=== PATIENT | female | born 1955 | race Caucasian/White ===

== ENCOUNTER 2018-11-25 16:33 | Inpatient (IN) ==
[2018-11-25 17:32] LABS: Basophils # 0.1 10*3/uL (0.0-0.2); Basophils % 0.7 % (0.0-0.8); Eosinophils # 0.1 10*3/uL (0.0-0.87); Eosinophils % 0.7 % (0.00-10.9); Hematocrit 39.5 VOL% (35.7-47.0); Hemoglobin 12.5 GM/DL (12.0-16.0); Immature Granulocytes % 0.7 %; Immature Granulocytes Absolute 0.11 #; Lymphocytes # 1.1 10*3/uL (1.4-4.0); Lymphocytes % 6.3 % (21.3-54.2); Mean Corpuscular HGB Conc 31.6 GM/DL (32-36); Mean Corpuscular Hemoglobin 28 PG (27-34); Mean Corpuscular Volume 89.6 FL (87-102); Mean Platelet Volume 10.2 FL (9.6-12.0); Monocytes # 0.8 10*3/uL (0.11-0.8); Monocytes % 4.9 % (1.7-12.7); Neutrophils # 14.6 10*3/uL (1.4-7.4); Neutrophils % 86.7 % (38.7-73.9); Platelet Count 373 T/CUMM (130-400); Red Blood Count 4.41 MC/CUMM (3.8-5.5); Red Cell Distribution Width 14.7 % (9.3-17.3); White Blood Count 16.9 T/CUMM (4-12)
[2018-11-25 17:39] LABS: Apearance,Urine CLEAR (Clear); Bacteria,Urine Occasional /HPF (Few); Bilirubin,Urine Negative (Negative); Blood, Urine Negative (Negative); Glucose,Urine (UA) Negative (Negative); Ketones,Urine Negative (Negative); Mucus,Urine Occasional /LPF (Occasional); Nitrite,Urine Negative (Negative); Protein,Urine Negative; RBC,Urine 2 /HPF (0-4); Urine Color Straw (Yellow); Urine Specific Gravity 1.006 (1.001-1.035); Urine Urobilinogen < 2.0 EU/DL (0.2-1.0); WBC,Urine 1 /HPF (0-6)
[2018-11-25 17:51] LABS: Alanine Aminotransferase 46 U/L (13-56); Albumin 4.1 G/DL (3.4-5.0); Alkaline Phosphatase 190 U/L (45-117); Aspartate Amino Transferase 22 U/L (0-37); Bilirubin,Total < 0.39 MG/DL (0.2-1.0); Blood Urea Nitrogen 18 MG/DL (7-18); Calcium 9.2 MG/DL (8.5-10.1); Glucose 93 MG/DL (74-106); Osmolality,Calculated 267.4 MOS/KG (273-304); Potassium 3.6 MMOL/L (3.5-5.1); Sodium 133 MMOL/L (136-145); Total Protein 8.6 G/DL (6.4-8.3)
[2018-11-25] MEDS ORDERED: ONDANSETRON 4 MG/2 ML VIAL IV PRN (19:00)
[2018-11-25] MEDS ORDERED: ALBUTEROL/IPRATROPIUM 3 ML NEB RESP TX STA (19:00)
[2018-11-25] MEDS ORDERED: BISACODYL 5 MG TABLET PO PRN (19:00)
[2018-11-25] MEDS ORDERED: ZALEPLON 5 MG CAPSULE PO PRN (19:00)
[2018-11-25] MEDS ORDERED: NICOTINE 21 MG/24 HR PATCH TRANSDERM PRN (19:00)
[2018-11-25] MEDS ORDERED: ACETAMINOPHEN 325 MG TABLET PO PRN (19:00)
[2018-11-25] MEDS ORDERED: LACTULOSE 20 GM/30 ML UDCUP PO PRN (19:00)
[2018-11-25] MEDS: MORPHINE 4 MG/1 ML VIAL IV PRN (19:41)
[2018-11-25] MEDS: SODIUM CHLORIDE 0.9% 1,000 ML IV SCH (19:44)
[2018-11-25 19:47] LABS: Thyroid Stimulating Hormone 1.91 uIU/ml (0.358-3.74)
[2018-11-25] MEDS: ALBUTEROL/IPRATROPIUM 3 ML NEB RESP TX SCH (23:02)
[2018-11-26] MEDS: MORPHINE 4 MG/1 ML VIAL IV PRN ×5 (00:06→20:40)
[2018-11-26] MEDS: SODIUM CHLORIDE 0.9% 1,000 ML IV SCH ×5 (03:09→20:02)
[2018-11-26 05:18] LABS: Basophils # 0.1 10*3/uL (0.0-0.2); Basophils % 1.2 % (0.0-0.8); Eosinophils # 0.2 10*3/uL (0.0-0.87); Eosinophils % 2.4 % (0.00-10.9); Hematocrit 34.6 VOL% (35.7-47.0); Hemoglobin 10.6 GM/DL (12.0-16.0); Immature Granulocytes % 0.3 %; Immature Granulocytes Absolute 0.03 #; Lymphocytes % 10.7 % (21.3-54.2); Mean Corpuscular HGB Conc 30.6 GM/DL (32-36); Mean Corpuscular Hemoglobin 28 PG (27-34); Mean Corpuscular Volume 91.3 FL (87-102); Monocytes # 0.8 10*3/uL (0.11-0.8); Monocytes % 9.4 % (1.7-12.7); Neutrophils # 6.8 10*3/uL (1.4-7.4); Platelet Count 239 T/CUMM (130-400); Red Blood Count 3.79 MC/CUMM (3.8-5.5); Red Cell Distribution Width 14.7 % (9.3-17.3)
[2018-11-26 05:41] LABS: Calcium 8.3 MG/DL (8.5-10.1); Osmolality,Calculated 272.8 MOS/KG (273-304); Potassium 3.8 MMOL/L (3.5-5.1)
[2018-11-26] MEDS ORDERED: PROPOFOL 500 MG/50 ML BOTTLE IV ONE (06:48)
[2018-11-26] MEDS ORDERED: BUPIVACAINE SPINAL 0.75% 2 ML AMP SPINAL ONE (06:48)
[2018-11-26] MEDS ORDERED: PHENYLEPHRINE DRIP 20 MG/250 ML PREMIX IV ONE (06:49)
[2018-11-26] MEDS: LEVOTHYROXINE 88 MCG TABLET PO SCH (07:15)
[2018-11-26] MEDS: ALBUTEROL/IPRATROPIUM 3 ML NEB RESP TX SCH ×2 (07:41→14:52)
[2018-11-26] MEDS ORDERED: ceFAZolin 1,000 MG VIAL ONE (07:49)
[2018-11-26] MEDS ORDERED: BUPIVACAINE 0.5% 50 ML VIAL ONE (08:13)
[2018-11-26] MEDS ORDERED: ceFAZolin 1,000 MG in SYRINGE 1 EACH IV ONE (08:14)
[2018-11-26] MEDS ORDERED: EPINEPHrine 1 MG/ML VIAL ONE (08:38)
[2018-11-26] MEDS ORDERED: MIDAZOLAM 2 MG/2 ML VIAL ONE (08:53)
[2018-11-26] MEDS ORDERED: KETAMINE 500 MG/10 ML VIAL ONE (08:54)
[2018-11-26] MEDS ORDERED: KETOROLAC 30 MG/1 ML VIAL IV ONE (10:55)
[2018-11-26] MEDS: CITALOPRAM 40 MG TABLET PO SCH (11:06)
[2018-11-26] MEDS: PANTOPRAZOLE 40 MG TABLET PO SCH (11:07)
[2018-11-27] MEDS: ALBUTEROL/IPRATROPIUM 3 ML NEB RESP TX SCH ×2 (00:13→07:42)
[2018-11-27] MEDS: MORPHINE 4 MG/1 ML VIAL IV PRN ×3 (02:44→11:41)
[2018-11-27] MEDS: SODIUM CHLORIDE 0.9% 1,000 ML IV SCH ×2 (02:44→06:05)
[2018-11-27 04:47] LABS: Basophils # 0.1 10*3/uL (0.0-0.2); Basophils % 0.8 % (0.0-0.8); Eosinophils # 0.4 10*3/uL (0.0-0.87); Eosinophils % 4.3 % (0.00-10.9); Hematocrit 31.3 VOL% (35.7-47.0); Hemoglobin 9.5 GM/DL (12.0-16.0); Immature Granulocytes % 0.4 %; Immature Granulocytes Absolute 0.04 #; Lymphocytes % 10.6 % (21.3-54.2); Mean Corpuscular HGB Conc 30.4 GM/DL (32-36); Mean Corpuscular Hemoglobin 28 PG (27-34); Mean Corpuscular Volume 93.2 FL (87-102); Mean Platelet Volume 10.2 FL (9.6-12.0); Monocytes # 0.9 10*3/uL (0.11-0.8); Monocytes % 9.9 % (1.7-12.7); Platelet Count 221 T/CUMM (130-400); Red Blood Count 3.36 MC/CUMM (3.8-5.5); Red Cell Distribution Width 14.6 % (9.3-17.3); White Blood Count 9.4 T/CUMM (4-12)
[2018-11-27 05:12] LABS: Osmolality,Calculated 273.7 MOS/KG (273-304); Potassium 3.5 MMOL/L (3.5-5.1)
[2018-11-27] MEDS: LEVOTHYROXINE 88 MCG TABLET PO SCH (05:43)
[2018-11-27] MEDS ORDERED: MAGNESIUM SULF RIDER 2 GM in PREMIX 1 EACH IV ONE (07:18)
[2018-11-27] MEDS ORDERED: ENOXAPARIN 40 MG/0.4 ML SYRINGE SUBCUT SCH (08:00)
[2018-11-27] MEDS: CITALOPRAM 40 MG TABLET PO SCH (09:17)
[2018-11-27] MEDS: PANTOPRAZOLE 40 MG TABLET PO SCH (09:37)
[2018-11-27] MEDS ORDERED: KETOROLAC 30 MG/1 ML VIAL IV ONE (10:06)
[2018-11-27 12:02] VITALS: BP 157/64
== END 2018-11-27 15:00 | disposition home health service (06) | DRG 481 ==
LOC: EDBD → EDUNIT# → N.ED 16:33 → N.EDINP 17:12 → SUATTDRO 17:12 → N.3E 18:01
PROVIDERS: ADMIT Internal Medicine; ATTEND Internal Medicine

== ENCOUNTER 2021-03-22 12:17 | Inpatient (IN) ==
[2021-03-22] MEDS ORDERED: SODIUM CHLORIDE 0.9% 1,000 ML IV STA (12:57)
[2021-03-22] MEDS ORDERED: ONDANSETRON 4 MG/2 ML VIAL IV STA (12:57)
[2021-03-22] MEDS ORDERED: HYDROmorphone 2 MG/1 ML VIAL IV STA (12:57)
[2021-03-22] MEDS ORDERED: ALBUTEROL 2.5 MG/3 ML NEB RESP TX STA (13:01)
[2021-03-22 13:27] LABS: Basophils # 0.1 10*3/uL (0.0-0.2); Basophils % 0.6 % (0.0-0.8); Eosinophils % 0.1 % (0.00-10.9); Hematocrit 47.6 VOL% (35.7-47.0); Hemoglobin 15.2 GM/DL (12.0-16.0); Immature Granulocytes % 0.5 %; Immature Granulocytes Absolute 0.07 #; Lymphocytes # 0.6 10*3/uL (1.4-4.0); Lymphocytes % 4.3 % (21.3-54.2); Mean Corpuscular HGB Conc 31.9 GM/DL (32-36); Mean Corpuscular Volume 97.5 FL (87-102); Mean Platelet Volume 9.7 FL (9.6-12.0); Monocytes % 7.2 % (1.7-12.7); Neutrophils % 87.3 % (38.7-73.9); Platelet Count 340 T/CUMM (130-400); Red Blood Count 4.88 MC/CUMM (3.8-5.5); Red Cell Distribution Width 12.6 % (9.3-17.3); White Blood Count 14.5 T/CUMM (4-12)
[2021-03-22 13:43] LABS: Albumin 3.8 G/DL (3.4-5.0); Bilirubin,Total 0.5 MG/DL (0.2-1.0); Calcium 9.6 MG/DL (8.5-10.1); Osmolality,Calculated 258.8 MOS/KG (273-304); Potassium 3.4 MMOL/L (3.5-5.1); Total Protein 8.5 G/DL (6.4-8.2)
[2021-03-22 13:51] LABS: Bacteria,Urine Occasional /HPF (Few); Bilirubin,Urine Negative (Negative); Blood, Urine Negative (Negative); Glucose,Urine (UA) Negative (Negative); Hyaline Casts,Urine 1 /LPF (0-3); Ketones,Urine 20 mg/dL (Negative); Mucus,Urine Occasional /LPF (Occasional); Nitrite,Urine Negative (Negative); Protein,Urine Negative; RBC,Urine 7 /HPF (0-4); Squamous Epithelial Cell,Urine Occasional /HPF (0-10); Urine Appearance CLEAR (Clear); Urine Color Yellow (Yellow); Urine Specific Gravity 1.017 (1.001-1.035)
[2021-03-22 14:17] LABS: Hypochromasia 1+; Lymphocytes 4 % (20-55); Macrocytosis Slight; Platelet Estimate Normal; Segmented Neutrophils 94 % (50-85); Total Cells Counted 100
[2021-03-22] MEDS ORDERED: ACETAMINOPHEN 325 MG TABLET PO PRN (15:36)
[2021-03-22] MEDS ORDERED: DEXTROSE 50% 25 GM/50 ML VIAL IV PRN (15:36)
[2021-03-22] MEDS ORDERED: GLUCAGON 1 MG VIAL IM PRN (15:36)
[2021-03-22 15:52] LABS: ABG Base Excess 8.9 MMOL/L (-2.5-2.5); ABG HCO3 32.6 MMOL/L (20-26); ABG Oxygen Saturation 92.3 % (95-100); ABG PCO2 68.7 MM HG (35-48); ABG PH 7.348 (7.35-7.45); ABG PO2 63.8 MM HG (80-95); ABG TCO2 33.2 MMOL/L (23-27); Allen Test Positive
[2021-03-22] MEDS ORDERED: ALBUTEROL/IPRATROPIUM 3 ML NEB RESP TX PRN (15:55)
[2021-03-22 16:25] LABS: Thyroid Stimulating Hormone 0.759 uIU/ml (0.358-3.74)
[2021-03-22] MEDS: NICOTINE 21 MG/24 HR PATCH TRANSDERM PRN (18:05)
[2021-03-22] MEDS: ENOXAPARIN 40 MG/0.4 ML SYRINGE SUBCUT SCH (18:10)
[2021-03-22] MEDS: SODIUM CHLORIDE 0.9% 1,000 ML IV SCH (18:12)
[2021-03-22] MEDS ORDERED: traZODone 50 MG TABLET PO ONE (22:14)
[2021-03-22] MEDS: HYDROmorphone 2 MG/1 ML VIAL IV PRN (23:06)
[2021-03-23] MEDS: SODIUM CHLORIDE 0.9% 1,000 ML IV SCH (03:34)
[2021-03-23] MEDS: HYDROmorphone 2 MG/1 ML VIAL IV PRN ×5 (07:05→21:23)
[2021-03-23 08:35] LABS: PT Patient Result 11.3 SECS (10.5-12.0)
[2021-03-23 08:39] LABS: Albumin 2.7 G/DL (3.4-5.0); Bilirubin,Total 0.5 MG/DL (0.2-1.0); Calcium 8.8 MG/DL (8.5-10.1); Potassium 3.4 MMOL/L (3.5-5.1); Total Protein 6.3 G/DL (6.4-8.2)
[2021-03-23 08:40] LABS: Basophils # 0.1 10*3/uL (0.0-0.2); Basophils % 0.7 % (0.0-0.8); Eosinophils # 0.1 10*3/uL (0.0-0.87); Eosinophils % 0.7 % (0.00-10.9); Hematocrit 38.8 VOL% (35.7-47.0); Immature Granulocytes % 0.4 %; Immature Granulocytes Absolute 0.03 #; Lymphocytes # 0.7 10*3/uL (1.4-4.0); Lymphocytes % 8.9 % (21.3-54.2); Mean Corpuscular HGB Conc 32.7 GM/DL (32-36); Mean Corpuscular Volume 97.5 FL (87-102); Monocytes % 9.6 % (1.7-12.7); Neutrophils % 79.7 % (38.7-73.9); Red Blood Count 3.98 MC/CUMM (3.8-5.5); Red Cell Distribution Width 12.7 % (9.3-17.3)
[2021-03-23 08:41] LABS: Hemoglobin 12.7 GM/DL (12.0-16.0); White Blood Count 8.1 T/CUMM (4-12)
[2021-03-23 08:42] LABS: Platelet Count 236 T/CUMM (130-400)
[2021-03-23] MEDS: PANTOPRAZOLE 40 MG VIAL IV SCH (10:12)
[2021-03-23] MEDS: ONDANSETRON 4 MG/2 ML VIAL IV PRN ×2 (10:16→18:37)
[2021-03-23] MEDS ORDERED: DIAZEPAM 5 MG TABLET PO ONE (11:09)
[2021-03-23] MEDS ORDERED: POTASSIUM CHLORIDE 20 MEQ TABLET PO ONE (13:30)
[2021-03-23] MEDS: LORazepam 2 MG/1 ML VIAL IV PRN (14:17)
[2021-03-23] MEDS ORDERED: POLYETHYLENE GLYCOL POWDER 255 GM BOTTLE PO ONE (18:00)
[2021-03-23] MEDS: ENOXAPARIN 40 MG/0.4 ML SYRINGE SUBCUT SCH (18:38)
[2021-03-23] MEDS ORDERED: MAGNESIUM CITRATE 300 ML BOTTLE PO ONE (21:00)
[2021-03-23] MEDS ORDERED: ALUMINUM/MAGNES/SIMETH MAX STR 30 ML UDCUP PO PRN (21:36)
[2021-03-23] MEDS: NICOTINE 21 MG/24 HR PATCH TRANSDERM PRN (22:31)
[2021-03-24] MEDS: HYDROmorphone 2 MG/1 ML VIAL IV PRN ×5 (03:11→19:38)
[2021-03-24] MEDS: LEVOTHYROXINE 125 MCG TABLET PO SCH (05:40)
[2021-03-24 06:12] LABS: Basophils # 0.1 10*3/uL (0.0-0.2); Basophils % 0.8 % (0.0-0.8); Eosinophils # 0.1 10*3/uL (0.0-0.87); Eosinophils % 0.8 % (0.00-10.9); Hematocrit 42.6 VOL% (35.7-47.0); Hemoglobin 13.1 GM/DL (12.0-16.0); Immature Granulocytes % 0.4 %; Immature Granulocytes Absolute 0.05 #; Lymphocytes # 0.9 10*3/uL (1.4-4.0); Lymphocytes % 6.7 % (21.3-54.2); Mean Corpuscular HGB Conc 30.8 GM/DL (32-36); Mean Corpuscular Volume 100.9 FL (87-102); Mean Platelet Volume 10.3 FL (9.6-12.0); Monocytes % 8.2 % (1.7-12.7); Neutrophils % 83.1 % (38.7-73.9); Platelet Count 310 T/CUMM (130-400); Red Blood Count 4.22 MC/CUMM (3.8-5.5); Red Cell Distribution Width 12.5 % (9.3-17.3)
[2021-03-24] MEDS ORDERED: LACTATED RINGERS 1,000 ML IV SCH (06:30)
[2021-03-24 06:41] LABS: Albumin 2.9 G/DL (3.4-5.0); Bilirubin,Total 1.1 MG/DL (0.2-1.0); Calcium 8.9 MG/DL (8.5-10.1); Potassium 3.5 MMOL/L (3.5-5.1); Total Protein 6.6 G/DL (6.4-8.2)
[2021-03-24] MEDS ORDERED: LIDOCAINE 2% 5 ML VIAL ONE (08:24)
[2021-03-24] MEDS ORDERED: ETOMIDATE 20 MG/10 ML VIAL IV ONE (08:24)
[2021-03-24] MEDS ORDERED: propofoL 200 MG/20 ML VIAL IV ONE ×2 (08:24→09:02)
[2021-03-24] MEDS ORDERED: OMEPRAZOLE PO SCH (09:00)
[2021-03-24] MEDS: DULoxetine 30 MG CAPSULE PO SCH (10:43)
[2021-03-24] MEDS: CETIRIZINE 10 MG TABLET PO SCH (10:44)
[2021-03-24] MEDS: PANTOPRAZOLE 40 MG VIAL IV SCH (10:44)
[2021-03-24] MEDS: ONDANSETRON 4 MG/2 ML VIAL IV PRN (16:05)
[2021-03-24] MEDS: ENOXAPARIN 40 MG/0.4 ML SYRINGE SUBCUT SCH (17:12)
[2021-03-25] MEDS: LEVOTHYROXINE 125 MCG TABLET PO SCH (06:04)
[2021-03-25 06:14] LABS: Basophils # 0.1 10*3/uL (0.0-0.2); Basophils % 0.8 % (0.0-0.8); Eosinophils # 0.2 10*3/uL (0.0-0.87); Eosinophils % 3.3 % (0.00-10.9); Hematocrit 38.5 VOL% (35.7-47.0); Hemoglobin 12.3 GM/DL (12.0-16.0); Immature Granulocytes % 0.5 %; Immature Granulocytes Absolute 0.03 #; Lymphocytes % 15.3 % (21.3-54.2); Mean Corpuscular HGB Conc 31.9 GM/DL (32-36); Mean Corpuscular Volume 98.5 FL (87-102); Mean Platelet Volume 9.9 FL (9.6-12.0); Monocytes % 9.5 % (1.7-12.7); Neutrophils % 70.6 % (38.7-73.9); Platelet Count 221 T/CUMM (130-400); Red Blood Count 3.91 MC/CUMM (3.8-5.5); Red Cell Distribution Width 12.7 % (9.3-17.3); White Blood Count 6.6 T/CUMM (4-12)
[2021-03-25 06:53] LABS: Albumin 2.4 G/DL (3.4-5.0); Bilirubin,Total 0.4 MG/DL (0.2-1.0); Calcium 8.5 MG/DL (8.5-10.1); Total Protein 5.8 G/DL (6.4-8.2)
[2021-03-25 07:00] LABS: Osmolality,Calculated 268.8 MOS/KG (273-304); Potassium 3.4 MMOL/L (3.5-5.1)
[2021-03-25] MEDS: HYDROmorphone 2 MG/1 ML VIAL IV PRN ×5 (07:23→20:14)
[2021-03-25] MEDS ORDERED: POTASSIUM CHLORIDE RIDER 10 MEQ/100 ML PREMIX IV PRN (07:49)
[2021-03-25] MEDS: DULoxetine 30 MG CAPSULE PO SCH (08:48)
[2021-03-25] MEDS: CETIRIZINE 10 MG TABLET PO SCH (08:49)
[2021-03-25] MEDS: POTASSIUM CHLORIDE 20 MEQ TABLET PO PRN ×3 (08:49→15:53)
[2021-03-25] MEDS: PANTOPRAZOLE 40 MG VIAL IV SCH (08:49)
[2021-03-25] MEDS: NICOTINE 21 MG/24 HR PATCH TRANSDERM PRN (08:57)
[2021-03-25] MEDS: ONDANSETRON 4 MG/2 ML VIAL IV PRN (10:51)
[2021-03-25] MEDS: ENOXAPARIN 40 MG/0.4 ML SYRINGE SUBCUT SCH (15:52)
[2021-03-25] MEDS: HYOSCYAMINE 0.125 MG TABLET PO SCH (18:13)
[2021-03-26] MEDS: HYDROmorphone 2 MG/1 ML VIAL IV PRN ×7 (00:21→20:44)
[2021-03-26] MEDS: HYOSCYAMINE 0.125 MG TABLET PO SCH ×2 (00:27→06:24)
[2021-03-26] MEDS: ONDANSETRON 4 MG/2 ML VIAL IV PRN ×5 (00:28→20:43)
[2021-03-26] MEDS: LEVOTHYROXINE 125 MCG TABLET PO SCH (06:24)
[2021-03-26 06:43] LABS: Basophils # 0.1 10*3/uL (0.0-0.2); Basophils % 0.6 % (0.0-0.8); Eosinophils # 0.3 10*3/uL (0.0-0.87); Eosinophils % 3.3 % (0.00-10.9); Hematocrit 41.7 VOL% (35.7-47.0); Hemoglobin 12.9 GM/DL (12.0-16.0); Immature Granulocytes % 0.3 %; Immature Granulocytes Absolute 0.03 #; Lymphocytes # 0.9 10*3/uL (1.4-4.0); Lymphocytes % 10.8 % (21.3-54.2); Mean Corpuscular HGB Conc 30.9 GM/DL (32-36); Mean Platelet Volume 9.8 FL (9.6-12.0); Monocytes % 8.5 % (1.7-12.7); Neutrophils % 76.5 % (38.7-73.9); Platelet Count 278 T/CUMM (130-400); Red Blood Count 4.17 MC/CUMM (3.8-5.5); Red Cell Distribution Width 12.3 % (9.3-17.3); White Blood Count 8.7 T/CUMM (4-12)
[2021-03-26 07:07] LABS: Potassium 4.5 MMOL/L (3.5-5.1)
[2021-03-26 07:33] LABS: Osmolality,Calculated 264.2 MOS/KG (273-304)
[2021-03-26] MEDS: DULoxetine 30 MG CAPSULE PO SCH (08:58)
[2021-03-26] MEDS: PANTOPRAZOLE 40 MG VIAL IV SCH (08:59)
[2021-03-26] MEDS: CETIRIZINE 10 MG TABLET PO SCH (08:59)
[2021-03-26] MEDS: NICOTINE 21 MG/24 HR PATCH TRANSDERM PRN (09:52)
[2021-03-26] MEDS: LORazepam 2 MG/1 ML VIAL IV PRN (10:45)
[2021-03-26] MEDS: ENOXAPARIN 40 MG/0.4 ML SYRINGE SUBCUT SCH (19:28)
[2021-03-26] MEDS: GABAPENTIN 300 MG CAPSULE PO SCH (20:44)
[2021-03-26] MEDS: POLYETHYLENE GLYCOL POWDER 17 GM PACK PO SCH (20:44)
[2021-03-27] MEDS: HYDROmorphone 2 MG/1 ML VIAL IV PRN ×3 (00:46→07:05)
[2021-03-27] MEDS: ONDANSETRON 4 MG/2 ML VIAL IV PRN ×2 (00:47→04:10)
[2021-03-27] MEDS: LEVOTHYROXINE 125 MCG TABLET PO SCH (05:45)
[2021-03-27] MEDS: PANTOPRAZOLE 40 MG VIAL IV SCH (08:46)
[2021-03-27] MEDS: CETIRIZINE 10 MG TABLET PO SCH (09:03)
[2021-03-27] MEDS: POLYETHYLENE GLYCOL POWDER 17 GM PACK PO SCH ×2 (09:03→21:28)
[2021-03-27] MEDS: DULoxetine 30 MG CAPSULE PO SCH (09:03)
[2021-03-27] MEDS ORDERED: methylPREDNISolone ACETATE 80 MG/1 ML VIAL ONE (11:07)
[2021-03-27] MEDS ORDERED: LIDOCAINE 1% 20 ML VIAL ONE (11:07)
[2021-03-27] MEDS ORDERED: fentaNYL 100 MCG/2 ML VIAL ONE (11:19)
[2021-03-27] MEDS ORDERED: MIDAZOLAM 2 MG/2 ML VIAL ONE (11:19)
[2021-03-27] MEDS ORDERED: ROPIVACAINE 0.5% 30 ML VIAL ONE (11:43)
[2021-03-27] MEDS ORDERED: DEXAMETHASONE 10 MG/1 ML VIAL ONE (11:44)
[2021-03-27] MEDS ORDERED: KETAMINE 500 MG/10 ML VIAL ONE (11:45)
[2021-03-27] MEDS ORDERED: propofoL 200 MG/20 ML VIAL IV ONE (11:45)
[2021-03-27] MEDS ORDERED: LIDOCAINE 2% 5 ML VIAL ONE (11:45)
[2021-03-27] MEDS ORDERED: LOPERAMIDE 2 MG CAPSULE PO PRN (14:51)
[2021-03-27] MEDS: NICOTINE 21 MG/24 HR PATCH TRANSDERM PRN (14:59)
[2021-03-27] MEDS: oxyCODONE IR 5 MG TABLET PO PRN (15:02)
[2021-03-27] MEDS ORDERED: fentaNYL 25 MCG/HR PATCH TRANSDERM SCH (18:00)
[2021-03-27] MEDS: ENOXAPARIN 40 MG/0.4 ML SYRINGE SUBCUT SCH (18:49)
[2021-03-27] MEDS: LORazepam 2 MG/1 ML VIAL IV PRN (19:21)
[2021-03-27] MEDS: GABAPENTIN 300 MG CAPSULE PO SCH (21:28)
[2021-03-28] MEDS: oxyCODONE IR 5 MG TABLET PO PRN ×3 (04:42→15:20)
[2021-03-28] MEDS: LEVOTHYROXINE 125 MCG TABLET PO SCH (06:44)
[2021-03-28 08:35] VITALS: BP 128/70
[2021-03-28] MEDS: PANTOPRAZOLE 40 MG VIAL IV SCH (08:51)
[2021-03-28] MEDS: CETIRIZINE 10 MG TABLET PO SCH (08:51)
[2021-03-28] MEDS: DULoxetine 30 MG CAPSULE PO SCH (08:51)
[2021-03-28] MEDS ORDERED: oxyCODONE/ACETAMINOPHEN 5-325 MG TABLET PO PRN (09:17)
[2021-03-28] MEDS: POLYETHYLENE GLYCOL POWDER 17 GM PACK PO SCH (10:06)
== END 2021-03-28 15:53 | disposition home or self-care (01) | DRG 844 ==
LOC: N.ED 12:17 → N.EDINP 15:14 → N.4E 17:44
PROVIDERS: ADMIT Internal Medicine; ATTEND Internal Medicine

== ENCOUNTER 2021-04-24 21:05 | Inpatient (IN) ==
[2021-04-24] MEDS ORDERED: SODIUM CHLORIDE 0.9% 1,000 ML IV STA (21:31)
[2021-04-24] MEDS ORDERED: ONDANSETRON 4 MG/2 ML VIAL IV ONE (21:54)
[2021-04-24] MEDS ORDERED: HYDROmorphone 2 MG/1 ML VIAL IV STA (21:54)
[2021-04-24 22:17] LABS: Basophils % 1.2 % (0.0-0.8); Eosinophils % 0.9 % (0.00-10.9); Hematocrit 39.2 VOL% (35.7-47.0); Hemoglobin 12.6 GM/DL (12.0-16.0); Immature Granulocytes % 0.3 %; Immature Granulocytes Absolute 0.01 #; Lymphocytes # 0.6 10*3/uL (1.4-4.0); Lymphocytes % 17.4 % (21.3-54.2); Mean Corpuscular HGB Conc 32.1 GM/DL (32-36); Mean Corpuscular Volume 93.1 FL (87-102); Mean Platelet Volume 10.5 FL (9.6-12.0); Monocytes % 12.4 % (1.7-12.7); Neutrophils % 67.8 % (38.7-73.9); Platelet Count 137 T/CUMM (130-400); Red Blood Count 4.21 MC/CUMM (3.8-5.5); Red Cell Distribution Width 12.1 % (9.3-17.3); White Blood Count 3.2 T/CUMM (4-12)
[2021-04-24 22:38] LABS: Bilirubin,Total 0.9 MG/DL (0.2-1.0); Calcium 9.2 MG/DL (8.5-10.1); Osmolality,Calculated 258.8 MOS/KG (273-304); Potassium 2.8 MMOL/L (3.5-5.1); Total Protein 7.9 G/DL (6.4-8.2)
[2021-04-24] MEDS ORDERED: POTASSIUM CHLORIDE 20 MEQ TABLET PO STA (23:06)
[2021-04-25 00:38] LABS: Bacteria,Urine Occasional /HPF (Few); Bilirubin,Urine Negative (Negative); Blood, Urine Negative (Negative); Glucose,Urine (UA) Negative (Negative); Ketones,Urine 20 mg/dL (Negative); Mucus,Urine Occasional /LPF (Occasional); Nitrite,Urine Negative (Negative); Protein,Urine Negative; RBC,Urine 6 /HPF (0-4); Squamous Epithelial Cell,Urine Few /HPF (0-10); Urine Appearance CLEAR (Clear); Urine Color Yellow (Yellow); Urine Specific Gravity 1.016 (1.001-1.035)
[2021-04-25] MEDS ORDERED: cefTRIAXone 1,000 MG in SODIUM CHLORIDE 0.9% 100 ML IV STA (01:05)
[2021-04-25] MEDS ORDERED: HYDROmorphone 2 MG/1 ML VIAL IV STA (02:05)
[2021-04-25] MEDS ORDERED: GLUCAGON 1 MG VIAL IM PRN (02:51)
[2021-04-25] MEDS ORDERED: DEXTROSE 50% 25 GM/50 ML VIAL IV PRN (02:51)
[2021-04-25] MEDS ORDERED: MORPHINE 4 MG/1 ML VIAL IV PRN (02:57)
[2021-04-25] MEDS ORDERED: hydrALAZINE 20 MG/1 ML VIAL IV PRN (02:57)
[2021-04-25] MEDS ORDERED: NICOTINE 21 MG/24 HR PATCH TRANSDERM PRN ×2 (02:57→10:44)
[2021-04-25] MEDS ORDERED: PROMETHAZINE 25 MG/1 ML VIAL IM PRN (02:57)
[2021-04-25] MEDS: SODIUM CHLOR 0.9% KCL 20 MEQ 20 MEQ/1,000 ML BAG IV SCH ×4 (04:39→23:00)
[2021-04-25 06:32] LABS: Albumin 2.6 G/DL (3.4-5.0); Bilirubin,Total 0.8 MG/DL (0.2-1.0); Calcium 8.5 MG/DL (8.5-10.1); Osmolality,Calculated 260.5 MOS/KG (273-304); Potassium 3.1 MMOL/L (3.5-5.1); Total Protein 6.7 G/DL (6.4-8.2)
[2021-04-25] MEDS: HYDROmorphone 2 MG/1 ML VIAL IV PRN ×4 (07:00→19:47)
[2021-04-25] MEDS: metroNIDAZOLE INJ 500 MG/100 ML PREMIX IV SCH ×3 (07:04→22:56)
[2021-04-25] MEDS ORDERED: MAGNESIUM SULF RIDER 4 GM/100 ML PREMIX IV PRN (08:18)
[2021-04-25] MEDS ORDERED: MAGNESIUM SULF RIDER 2 GM/50 ML PREMIX IV PRN (08:18)
[2021-04-25] MEDS ORDERED: POTASSIUM CHLORIDE RIDER 10 MEQ/100 ML PREMIX IV PRN (08:18)
[2021-04-25] MEDS: PANTOPRAZOLE 40 MG TABLET PO SCH (08:50)
[2021-04-25] MEDS ORDERED: fentaNYL 25 MCG/HR PATCH TRANSDERM SCH (09:00)
[2021-04-25] MEDS ORDERED: POLYETHYLENE GLYCOL POWDER 17 GM PACK PO PRN (10:44)
[2021-04-25] MEDS ORDERED: ONDANSETRON ODT 4 MG TABLET PO PRN (10:44)
[2021-04-25] MEDS ORDERED: fentaNYL 50 MCG/HR PATCH TRANSDERM SCH (11:00)
[2021-04-25] MEDS ORDERED: fentaNYL 100 MCG/HR PATCH TRANSDERM SCH (11:15)
[2021-04-25] MEDS: ALBUTEROL/IPRATROPIUM 3 ML NEB RESP TX SCH ×2 (11:24→19:11)
[2021-04-25] MEDS ORDERED: HYDROmorphone 2 MG/1 ML VIAL IV PRN (16:04)
[2021-04-25] MEDS ORDERED: traZODone 50 MG TABLET PO SCH (21:00)
[2021-04-26] MEDS: ALBUTEROL/IPRATROPIUM 3 ML NEB RESP TX SCH ×2 (00:05→07:34)
[2021-04-26] MEDS: HYDROmorphone 2 MG/1 ML VIAL IV PRN ×4 (01:51→12:13)
[2021-04-26] MEDS ORDERED: cefTRIAXone 1,000 MG in SODIUM CHLORIDE 0.9% 100 ML IV SCH (03:00)
[2021-04-26] MEDS: SODIUM CHLOR 0.9% KCL 20 MEQ 20 MEQ/1,000 ML BAG IV SCH (03:49)
[2021-04-26 06:10] LABS: Basophils % 1.5 % (0.0-0.8); Eosinophils # 0.1 10*3/uL (0.0-0.87); Eosinophils % 2.6 % (0.00-10.9); Hematocrit 29.1 VOL% (35.7-47.0); Lymphocytes # 0.8 10*3/uL (1.4-4.0); Mean Corpuscular Volume 95.4 FL (87-102); Mean Platelet Volume 10.3 FL (9.6-12.0); Monocytes % 12.3 % (1.7-12.7); Neutrophils % 44.6 % (38.7-73.9)
[2021-04-26] MEDS: metroNIDAZOLE INJ 500 MG/100 ML PREMIX IV SCH (06:10)
[2021-04-26 06:18] LABS: Hemoglobin 9.3 GM/DL (12.0-16.0); Red Blood Count 3.05 MC/CUMM (3.8-5.5)
[2021-04-26 06:19] LABS: Platelet Count 81 T/CUMM (130-400)
[2021-04-26 06:20] LABS: Calcium 8.2 MG/DL (8.5-10.1)
[2021-04-26] MEDS ORDERED: LEVOTHYROXINE 125 MCG TABLET PO SCH (06:30)
[2021-04-26 06:40] LABS: Hypochromasia 1+; Microcytosis 1+; Platelet Estimate Decreased
[2021-04-26] MEDS: PANTOPRAZOLE 40 MG TABLET PO SCH (08:39)
[2021-04-26] MEDS ORDERED: POTASSIUM CHLORIDE 20 MEQ TABLET PO ONE (08:52)
[2021-04-26] MEDS ORDERED: DULoxetine 30 MG CAPSULE PO SCH (09:00)
[2021-04-26] MEDS ORDERED: CETIRIZINE 10 MG TABLET PO SCH (09:00)
[2021-04-26 11:51] VITALS: BP 133/63
[2021-04-26] MEDS ORDERED: POTASSIUM CHLORIDE 20 MEQ TABLET PO SCH (21:00)
[2021-04-26] MEDS ORDERED: DOCUSATE SODIUM 100 MG CAPSULE PO SCH (21:00)
[2021-04-27] MEDS ORDERED: fentaNYL 25 MCG/HR PATCH TRANSDERM SCH (09:00)
== END 2021-04-26 12:34 | disposition home or self-care (01) | DRG 947 ==
LOC: N.ED 21:05 → N.EDINP 04-25 02:51 → N.4E 04-25 03:13
PROVIDERS: ADMIT Hospitalist; ATTEND Hospitalist

== ENCOUNTER 2021-05-18 18:45 | Inpatient (IN) ==
[2021-05-18] MEDS ORDERED: SODIUM CHLORIDE 0.9% 1,000 ML IV STA (22:07)
[2021-05-18] MEDS ORDERED: HYDROmorphone 2 MG/1 ML VIAL IV STA (22:14)
[2021-05-18] MEDS ORDERED: ONDANSETRON 4 MG/2 ML VIAL IV ONE (22:14)
[2021-05-18 22:58] LABS: Basophils % 0.9 % (0.0-0.8); Eosinophils % 0.9 % (0.00-10.9); Hemoglobin 10.7 GM/DL (12.0-16.0); Lymphocytes # 0.8 10*3/uL (1.4-4.0); Lymphocytes % 34.6 % (21.3-54.2); Mean Corpuscular HGB Conc 32.4 GM/DL (32-36); Mean Corpuscular Volume 94.6 FL (87-102); Mean Platelet Volume 10.3 FL (9.6-12.0); Monocytes % 17.1 % (1.7-12.7); Neutrophils % 46.5 % (38.7-73.9); Platelet Count 142 T/CUMM (130-400); Red Blood Count 3.49 MC/CUMM (3.8-5.5); Red Cell Distribution Width 14.6 % (9.3-17.3); White Blood Count 2.2 T/CUMM (4-12)
[2021-05-18 23:19] LABS: Albumin 3.6 G/DL (3.4-5.0); Bilirubin,Total 0.5 MG/DL (0.20-1.00); Calcium 9.2 MG/DL (8.5-10.1); Osmolality,Calculated 266.2 MOS/KG (273-304); Total Protein 7.2 G/DL (6.4-8.2)
[2021-05-19] MEDS ORDERED: HYDROmorphone 2 MG/1 ML VIAL IV STA (01:12)
[2021-05-19] MEDS ORDERED: GLUCAGON 1 MG VIAL IM PRN (03:28)
[2021-05-19] MEDS ORDERED: DEXTROSE 50% 25 GM/50 ML VIAL IV PRN (03:28)
[2021-05-19] MEDS ORDERED: PROMETHAZINE 25 MG/1 ML VIAL IM PRN (03:28)
[2021-05-19] MEDS ORDERED: diphenhydrAMINE CAP 25 MG CAPSULE PO PRN (03:28)
[2021-05-19 04:11] LABS: Lymphocytes 42 % (20-55); Platelet Estimate Adequate; Segmented Neutrophils 43 % (50-85); Total Cells Counted 100
[2021-05-19 04:12] LABS: Hypochromasia Slight; Microcytosis Slight
[2021-05-19] MEDS: HYDROmorphone 2 MG/1 ML VIAL IV PRN ×4 (05:05→20:15)
[2021-05-19] MEDS: ONDANSETRON 4 MG/2 ML VIAL IV PRN ×2 (05:55→11:43)
[2021-05-19] MEDS ORDERED: fentaNYL 100 MCG/HR PATCH TRANSDERM SCH (12:30)
[2021-05-19] MEDS: HYDROmorphone 2 MG TABLET PO PRN (14:38)
[2021-05-19] MEDS ORDERED: HYDROmorphone 2 MG/1 ML VIAL IV PRN (18:22)
[2021-05-20] MEDS: HYDROmorphone 2 MG/1 ML VIAL IV PRN ×6 (01:18→23:32)
[2021-05-20 06:23] LABS: Basophils % 0.6 % (0.0-0.8); Eosinophils % 1.1 % (0.00-10.9); Hemoglobin 9.7 GM/DL (12.0-16.0); Immature Granulocytes % 0.6 %; Immature Granulocytes Absolute 0.01 #; Lymphocytes # 0.6 10*3/uL (1.4-4.0); Mean Corpuscular HGB Conc 32.3 GM/DL (32-36); Mean Corpuscular Volume 95.5 FL (87-102); Mean Platelet Volume 10.4 FL (9.6-12.0); Monocytes % 19.4 % (1.7-12.7); Neutrophils % 42.3 % (38.7-73.9); Platelet Count 132 T/CUMM (130-400); Red Blood Count 3.14 MC/CUMM (3.8-5.5); Red Cell Distribution Width 14.9 % (9.3-17.3); White Blood Count 1.8 T/CUMM (4-12)
[2021-05-20 06:41] LABS: Calcium 9.3 MG/DL (8.5-10.1); Osmolality,Calculated 268.8 MOS/KG (273-304); Potassium 3.4 MMOL/L (3.5-5.1)
[2021-05-20 06:48] LABS: Band Neutrophils 1 % (0-10); Hypochromasia 1+; Lymphocytes 42 % (20-55); Microcytosis 1+; Platelet Estimate Adequate; Segmented Neutrophils 46 % (50-85); Total Cells Counted 100
[2021-05-20] MEDS ORDERED: POTASSIUM CHLORIDE 20 MEQ TABLET PO PRN (09:18)
[2021-05-20] MEDS: CLORAZEPATE 7.5 MG TABLET PO SCH ×3 (09:50→23:30)
[2021-05-20] MEDS: HYDROmorphone 2 MG TABLET PO PRN (10:34)
[2021-05-20] MEDS ORDERED: POTASSIUM CHLORIDE 20 MEQ TABLET PO ONE (11:00)
[2021-05-20] MEDS ORDERED: POLYETHYLENE GLYCOL POWDER 17 GM PACK PO PRN (12:39)
[2021-05-20] MEDS ORDERED: ALBUTEROL 2.5 MG/3 ML NEB RESP TX PRN (15:00)
[2021-05-20] MEDS ORDERED: fentaNYL 25 MCG/HR PATCH TRANSDERM SCH (18:00)
[2021-05-20] MEDS: oxyCODONE IR 5 MG TABLET PO PRN (19:51)
[2021-05-20] MEDS: DOCUSATE SODIUM 100 MG CAPSULE PO SCH (23:30)
[2021-05-21] MEDS: HYDROmorphone 2 MG/1 ML VIAL IV PRN (05:07)
[2021-05-21 05:45] LABS: Basophils % 0.9 % (0.0-0.8); Eosinophils % 1.4 % (0.00-10.9); Hematocrit 28.6 VOL% (35.7-47.0); Hemoglobin 9.3 GM/DL (12.0-16.0); Lymphocytes # 1.1 10*3/uL (1.4-4.0); Mean Corpuscular HGB Conc 32.5 GM/DL (32-36); Mean Corpuscular Volume 94.4 FL (87-102); Monocytes % 18.4 % (1.7-12.7); Neutrophils % 29.3 % (38.7-73.9); Platelet Count 109 T/CUMM (130-400); Red Blood Count 3.03 MC/CUMM (3.8-5.5); Red Cell Distribution Width 15.4 % (9.3-17.3); White Blood Count 2.1 T/CUMM (4-12)
[2021-05-21 06:06] LABS: Calcium 9.1 MG/DL (8.5-10.1); Osmolality,Calculated 269.8 MOS/KG (273-304); Potassium 3.7 MMOL/L (3.5-5.1)
[2021-05-21] MEDS ORDERED: LEVOTHYROXINE 125 MCG TABLET PO SCH (06:30)
[2021-05-21 06:40] LABS: Eosinophils 2 % (0-10); Lymphocytes 52 % (20-55); Segmented Neutrophils 28 % (50-85); Total Cells Counted 100
[2021-05-21 06:41] LABS: Hypochromasia 2+; Platelet Estimate Decreased
[2021-05-21] MEDS: oxyCODONE IR 5 MG TABLET PO PRN ×2 (08:29→12:54)
[2021-05-21] MEDS: DOCUSATE SODIUM 100 MG CAPSULE PO SCH (08:30)
[2021-05-21] MEDS: CLORAZEPATE 7.5 MG TABLET PO SCH ×2 (08:30→16:00)
[2021-05-21] MEDS ORDERED: CETIRIZINE 10 MG TABLET PO SCH (09:00)
[2021-05-21] MEDS ORDERED: DULoxetine 30 MG CAPSULE PO SCH (09:00)
[2021-05-21 12:01] VITALS: BP 100/60
== END 2021-05-21 15:01 | disposition home or self-care (01) | DRG 947 ==
LOC: N.ED 18:45 → N.EDINP 18:45 → SUATTDRO 05-19 03:28 → N.4E 05-19 04:48 → SUATTDRO 05-20 14:00
PROVIDERS: ADMIT Internal Medicine; ATTEND Internal Medicine